=== PATIENT | male | born 1970 | race Caucasian/White ===

== ENCOUNTER 2017-05-14 07:21 | Day surgery (SDC) | payer OTHER ==
[~2017-05-14] VITALS: Ht 167.6 cm; Wt 129.1 kg
[2017-05-14 08:06] VITALS: Ht 167.6 cm; Wt 129.1 kg
[2017-05-14] MEDS ORDERED: NO MEDS. (08:11)
[2017-05-14 08:46] VITALS: BP 125/67; PULSE 71; RESP 18
[2017-05-14] MEDS ORDERED: LIDOCAINE 2% (SDV) 5 ML INJ ONE (08:47)
[2017-05-14] MEDS ORDERED: MIDAZOLAM 1 MG/ML 2 ML INJ ONE (08:47)
[2017-05-14] MEDS ORDERED: PROPOFOL 20 ML ONE (08:47)
--- NOTE | 2017-05-14 09:24 | OPPN ---
Date/Time of Note Date/Time of Note DATE: 05/14/17 TIME: 09:19 Operative Report Preoperative Diagnosis Rectal bleeding Postoperative Diagnosis Right colon polyp was removed Mild diverticulosis of the colon Internal hemorrhoids Operation/Procedure Performed Colonoscopy and polypectomy Provider: KRISTIN WELLS MD Anesthesia Type: MAC Estimated blood loss: none Transfusion Required: no Specimens Colon polyp Grafts/Implants: none Complications: no KRISTIN WELLS MD May 14, 2017 09:24
--- NOTE | 2017-05-14 10:27 | GILP ---
DATE OF PROCEDURE: PROCEDURE PERFORMED: Colonoscopy and polypectomy. SURGEON: Sanket Olson MD PREOPERATIVE DIAGNOSIS: Rectal bleeding. POSTOP DIAGNOSIS: 1. Colonoscopy all the way to the cecum. 2. Right colon polyp was removed using the snare and electrocautery. 3. Mild diverticulosis of the colon. 4. Internal hemorrhoids. INDICATION: Mr. Zeyad Jimenez is a 46-year-old male patient who had rectal bleeding. The patient was scheduled for colonoscopy for further evaluation. The procedure and possible complications were well explained to the patient. The patient understood and consented to the procedure. DESCRIPTION OF PROCEDURE: Under the influence of anesthesia, the colonoscope was carefully introduced in the rectum. Under direct vision, it was advanced all the way to the cecum. Findings, the patient had a right colon polyp and it was removed using the snare and electrocautery. The patient was noted to have mild diverticulosis of the colon. He had internal hemorrhoids. He tolerated the procedure very well, and there were no complications from the procedure. At the end of the procedure, he was awake with stable vital signs and he was discharged home in the care of his family. IMPRESSION: Please see postop diagnoses. PLAN: 1. Anusol HC 2.5 percent cream 2. Next screening colonoscopy in 5 years. Dictated By: MD FER Sotelo/arun/milady /Document#: [id number]
== END 2017-05-14 12:03 | disposition home or self-care (01) ==
LOC: GIL 07:21
PROVIDERS: ATTEND Internal Medicine Gastroenterology
DX: D12.6 Benign neoplasm of colon, unspecified (principal); K57.90 Diverticulosis of intestine, part unspecified, without perforation or abscess without bleeding; K64.8 Other hemorrhoids; E66.9 Obesity, unspecified; Z68.42 Body mass index [BMI] 45.0-49.9, adult
CPT/HCPCS: 45385; 88305; J2250; Z7610